=== PATIENT | male | born 1995 | race Hispanic/Latino ===

== ENCOUNTER 2018-04-21 10:55 | Emergency (ER) | payer SELFPAY ==
[2018-04-21] MEDS ORDERED: DEXAMETHASONE SOD PHOSPHATE 10MG/ML 1ML VIAL ONE (11:20)
[2018-04-21] MEDS ORDERED: ONDANSETRON HCL 4 MG/2 ML VIAL ONE (11:20)
[2018-04-21] MEDS ORDERED: HYDROMORPHONE 1 MG/1 ML AMP ONE (11:21)
[2018-04-21] MEDS ORDERED: KETOROLAC TROMETHAMINE 30MG/ML ONE (11:21)
[2018-04-21] MEDS ORDERED: ORPHENADRINE CITRATE 30 MG/ML ML ONE (12:31)
== END 2018-04-21 13:55 | disposition home or self-care (01) ==
LOC: EDH 10:55
DX: M54.16 Radiculopathy, lumbar region (principal); M62.830 Muscle spasm of back
CPT/HCPCS: 72100; 96374; 96375; 99284; J1100; J1170; J1885; J2360; J2405